=== PATIENT | female | born 1950 | race African-American/Black ===

== ENCOUNTER 2018-06-19 09:46 | Inpatient (IN) ==
[2018-06-19] MEDS ORDERED: DUONEB (A & A) ONE (09:47)
[2018-06-19] MEDS ORDERED: ASPIRIN PR ONE (09:50)
[2018-06-19] MEDS ORDERED: ASPIRIN PO ONE (09:50)
[2018-06-19] MEDS ORDERED: DUONEB (A & A) INH ONE ×2 (09:52→10:10)
[2018-06-19 10:22] LABS: BE 0.6 mmoll (-3.0-3.0); BLOOD TYPE ARTERIAL; METHB 1.2 % (0.0-1.5); O2(CT) 15.1 mL/dL (15.0-23.0); PCO2(98.6) 36 mmHg (35-45); PO2(98.6) 56 mmHg (60-100); SAMPLE BLOOD; SAO2 91.3 % (95.0-100.0); pH(98.6) 7.44 (7.35-7.45)
[2018-06-19 10:26] LABS: ALLEN TEST NO; MODALITY CANNULA; O2HB 82.5 % (95.0-99.0)
--- NOTE | 2018-06-19 10:46 | Diag Imaging Result Doc PS360 ---
EXAM: CHEST-2 VIEWS INDICATION: dyspnea TECHNIQUE: 2 views COMPARISON: 01/17/2018 FINDINGS: The left chest port is in stable position. Overall, the large mediastinal and left hilar airam mass seen on the previous study has improved substantially. There is now consolidation versus residual mass projecting of the left lower lung zone. There are COPD changes with a mass in the anterior segment of the right upper lobe exhibiting an air crescent sign. 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 It is essentially stable. However, there is surrounding infiltrate that appears more prominent than the previous study There is no discrete pleural fluid collection or pneumothorax. Cardiac silhouette is essentially stable. IMPRESSION: 1.Overall significant improvement in the severe mediastinal and hilar lymphadenopathy on the left seen previously. 2.Opacification at the left lower lung zone that is obscuring the left heart border that either represents pneumonia or residual mass. 3.Approximately stable right midlung zone aspergilloma but with worsening infiltrate surrounding it. Electronically signed by Saul Guillory 06/19/2018 10:44 AM
[2018-06-19 11:46] LABS: INR 1.11; PROTIME 14.9 Seconds (11.0-16.0)
[2018-06-19 11:47] LABS: PTT 40.6 Seconds (22.3-41.8)
[2018-06-19 12:20] LABS: BASO# 0.02 X1000 (0.0-0.2); BASO% 0.2 % (0.0-0.8); EOS# 0.03 X1000 (0.0-0.7); EOS% 0.2 % (0.0-10.0); HEMOGLOBIN 9.3 g/dL (12.0-16.0); IMM GRAN# 0.07 X1000 (0.0-0.04); IMM GRAN% 0.6 % (0.0-0.5); LYMPH# 0.45 X1000 (1.2-3.4); LYMPH% 3.6 % (20.5-51.1); MCH 34.1 PG (27-31); MCHC 33.2 g/dL (33-37); MCV 102.6 FL (81-99); MONO# 1.43 X1000 (0.11-0.59); MONO% 11.3 % (1.7-9.3); MPV 9.4 FL (7.4-10.4); NEUT# 10.67 X1000 (1.4-6.5); NEUT% 84.1 % (42.2-75.2); PLT 196 X1000 (130-400); RBC 2.73 XMIL (4.2-5.4); RDW 14.3 % (11.5-14.5); WBC 12.67 X1000 (4.8-10.8)
[2018-06-19 12:56] LABS: ESTIMATED GFR > 60
[2018-06-19 12:58] LABS: AGAP 15; ALBUMIN 2.9 g/dL (3.5-5.0); ALKALINE PHOSPHATASE 120 U/L (32-104); BUN 16 mg/dL (8-22); CALCIUM 9.5 mg/dL (8.8-10.2); CHLORIDE 98 mmol/L (98-107); CK PROFILE 57 U/L (24-173); COSMO 293; CREATININE 0.8 mg/dL (0.5-0.9); GOT 18 U/L (10-30); GPT 11 U/L (10-36); SODIUM 137 mmol/L (136-145); TCO2 24 mmol/L (25-35); TOTAL PROTEIN 6.4 g/dL (6.3-8.3)
[2018-06-19 12:59] LABS: GLUCOSE 415 mg/dL (70-104)
[2018-06-19] MEDS ORDERED: ZOFRAN IV PRN (14:44)
[2018-06-19] MEDS ORDERED: NS NEB INH SCH (14:45)
[2018-06-19] MEDS ORDERED: NS 1,000 ML IV SCH ×3 (14:45→18:00)
[2018-06-19] MEDS: XOPENEX NEB INH SCH ×3 (16:12→23:35)
[2018-06-19] MEDS: ATROVENT NEB INH SCH ×3 (16:13→23:35)
[2018-06-19] MEDS ORDERED: VANCOMYCIN IV PER PHARMACY MISC SCH (16:30)
[2018-06-19] MEDS ORDERED: ZOSYN 3.375 GM in NS 50 ML IV SCH (16:30)
[2018-06-19] MEDS: SOLU-MEDROL IV SCH (18:53)
[2018-06-19] MEDS: CLINDAMYCIN 600 MG/D5W 600 MG/50 ML IVPB IV SCH (18:53)
--- NOTE | 2018-06-19 19:23 | HISTORY AND PHYSICAL ---
ADDENDUM: Patient seen and examined by myself. Full note dictated and discussed with nurse practitioner. Patient presented to the ER stating that she has been sick for 3 weeks. She has been encouraged to come to the ER, but was not until today. Her symptoms have continued to worsen with cough, congestion, shortness of breath, dyspnea on exertion. Has a known history of lung cancer. It appears as though she has a pneumonia. We will admit her to the hospital, place her on antibiotics, and will follow. cc: Ankur Mahmood MD
--- NOTE | 2018-06-19 19:44 | HISTORY AND PHYSICAL ---
CHIEF COMPLAINT: Shortness of breath. HISTORY OF PRESENT ILLNESS: This is a 67-year-old female with a history of lung cancer, COPD with continued tobacco use. She presents to the emergency room complaining of increasing shortness of breath over the last 2 weeks despite her home medications. She states that during these 2 weeks she has not been able to eat, and she has lost a considerable amount of weight, although she is not sure how much. PAST MEDICAL HISTORY: 1. Colon cancer with bronchial obstruction. 2. Chronic obstructive pulmonary disease. 3. Hypothyroid. 4. Tobacco abuse. 5. Mild protein-calorie malnutrition. PAST SURGICAL HISTORY: Thyroidectomy, hysterectomy, mastectomy, needle biopsy, and left Port-A- Cath placement. FAMILY HISTORY: Family history is positive for breast cancer in her mother. SOCIAL HISTORY: She lives with family members. She smokes half a pack to a pack a day. She denies alcohol or illicit drug use. ALLERGIES: Codeine, fentanyl, morphine, penicillin, and tramadol that caused itching. HOME MEDICATIONS: A list will be obtained and once verified we will review and continue as appropriate. REVIEW OF SYSTEMS: Review of systems is discussed with patient with pertinent positives stated in the HPI. She denied any syncope or dizziness; any chest pain; any palpitations, a productive cough; any nausea, vomiting, diarrhea, constipation, black or bloody vomitus or stools; hematuria, dysuria, frequency, or urgency. PHYSICAL EXAMINATION: GENERAL: This is a 67-year-old female who is sitting on the side of the stretcher in ICU in mild respiratory distress. VITAL SIGNS: Blood pressure is 112/78 with a heart rate of 103, respirations are 20 to 22, temperature is 98.3 degrees with O2 saturation of 95% to 97% on 2 L nasal cannula. EYES: Pupils are equal, round, react to light. EOMs are intact. Sclerae are anicteric. HEENT: Head is normocephalic, atraumatic. Mucous membranes are moist. NECK: Supple with trachea midline. CARDIOVASCULAR: Regular rate and rhythm. S1, S2 appreciated. She has no lower extremity edema. Peripheral pulses palpable x4 extremities. PULMONARY: Breath sounds are diminished with left greater than right with wheezes scattered throughout. GASTROINTESTINAL: Abdomen is soft, nondistended, nontender with bowel sounds in all 4 quadrants. NEUROLOGIC: She is alert and oriented. SKIN: Warm and dry. LABORATORY DATA: WBC is 12.6 with a hemoglobin 9.3, hematocrit 28, platelets of 196,000. Sodium is 137, potassium 4, BUN 16, creatinine 0.8 with glucose 415. ABGs with pH of 7.4 with pCO2 of 36, PO2 of 56, and bicarb of 25. Chest x-ray reveals significant overall and severe mediastinal and hilar lymphadenopathy on the left compared to 01/17/2018. She has opacification at the left lower lung zone. There is obscuring the left heart border that either represents pneumonia or residual mass. Approximately stable right mid lung zone aspergilloma but with worsening infiltrate surrounding it. ASSESSMENT: 1. Acute hypoxic respiratory distress. 2. Chronic obstructive pulmonary disease with acute exacerbation. 3. Lung cancer with bronchial obstruction. She is followed by Dr. Warner. 4. Hypothyroid. 5. Leukocytosis. 6. Hyperglycemia. 7. Moderate protein-calorie malnutrition. PLAN: The patient will be transferred to medical floor at [facility]. We will consult Dr. Warner and Dr. Grimes who she has previously established with. Of note blood cultures were obtained in the emergency room. We will start antibiotic coverage of vancomycin and Zosyn, and then further antibiotic coverage will be culture driven. We will identify her medications and continue. She has had been tachycardic, so we will give Xopenex and Atrovent treatments every 4 hours with steroids to taper. We will consult dietary for help with nutrition. We will get a urine and urine culture. Further treatments pending hospital course. Dictated by JOSE Leslie for Ankur Mahmood MD This chart was documented by, JOSE Leslie and accurately reflects the services performed, treatment plan and medical decisions as attested by the providers signature Ankur Mahmood MD. cc: JOSE Leslie MD
[2018-06-19] MEDS: HUMULIN R SUBQ SCH ×2 (20:29→22:47)
[2018-06-19] MEDS: VANCOMYCIN 1 GM/NS 1 GM/250 ML IVPB IV SCH (20:29)
[2018-06-20] MEDS ORDERED: HUMALOG SUBQ ONE (00:43)
[2018-06-20] MEDS: SOLU-MEDROL IV SCH ×3 (01:08→23:19)
[2018-06-20] MEDS: CLINDAMYCIN 600 MG/D5W 600 MG/50 ML IVPB IV SCH ×3 (01:08→18:00)
[2018-06-20] MEDS: ATROVENT NEB INH SCH ×6 (02:50→22:59)
[2018-06-20] MEDS: XOPENEX NEB INH SCH ×6 (02:50→22:59)
[2018-06-20 04:51] LABS: URINE SOURCE VOIDED
[2018-06-20 04:53] LABS: BILIRUBIN URINE NEGATIVE (NEGATIVE); BLOOD URINE NEGATIVE (NEGATIVE); COLOR YELLOW; GLUCOSE URINE >1000 mg/dL (NEGATIVE); KETONE URINE NEGATIVE (NEGATIVE); LEUKOCYTES URINE NEGATIVE (NEGATIVE); NITRITE URINE NEGATIVE (NEGATIVE); PROTEIN URINE 50 mg/dL (NEGATIVE); TURBIDITY URINE HAZY (CLEAR); UROBILINOGEN URINE NORMAL (NORMAL)
[2018-06-20 05:08] LABS: UR EPITHELIAL CELLS <10 /HPF (<10); URINE BACTERIA NEGATIVE /HPF; URINE RBC <10 /HPF (<10); URINE WBC <10 /HPF (<10)
[2018-06-20 06:05] LABS: URINE CASTS NONE SEEN; URINE CRYSTALS NONE SEEN; URINE SMALL ROUND CELLS NONE SEEN; URINE YEAST PRESENT
[2018-06-20] MEDS: PRILOSEC PO SCH (06:35)
[2018-06-20] MEDS: HUMULIN R SUBQ SCH ×4 (06:36→16:12)
[2018-06-20] MEDS ORDERED: MIRALAX PO PRN (13:38)
[2018-06-20] MEDS ORDERED: MYCOSTATIN SUSP PO PRN (13:38)
[2018-06-20] MEDS ORDERED: SOLU-MEDROL IV SCH (14:00)
[2018-06-20] MEDS ORDERED: CORTEF PO SCH (14:00)
[2018-06-20 14:27] LABS: HEMATOCRIT 26.6 % (37.0-47.0); HEMOGLOBIN 8.8 g/dL (12.0-16.0); IMM GRAN# 0.04 X1000 (0.0-0.04); IMM GRAN% 0.3 % (0.0-0.5); LYMPH# 0.19 X1000 (1.2-3.4); LYMPH% 1.6 % (20.5-51.1); MCH 34.1 PG (27-31); MCHC 33.1 g/dL (33-37); MCV 103.1 FL (81-99); MONO% 5.1 % (1.7-9.3); MPV 9.4 FL (7.4-10.4); NEUT# 11.05 X1000 (1.4-6.5); PLT 167 X1000 (130-400); RBC 2.58 XMIL (4.2-5.4); WBC 11.88 X1000 (4.8-10.8)
[2018-06-20 14:49] LABS: BANDS 6 % (0-1); LYMPHS 4 % (21-51); MONO 3 % (1-9); SEGS 87 % (42-75)
[2018-06-20 15:26] LABS: AGAP 15; BUN 20 mg/dL (8-22); CALCIUM 9.3 mg/dL (8.8-10.2); CHLORIDE 102 mmol/L (98-107); COSMO 295; CREATININE 0.9 mg/dL (0.5-0.9); ESTIMATED GFR > 60; GLUCOSE 401 mg/dL (70-104); POTASSIUM 4.4 mmol/L (3.5-5.1); SODIUM 138 mmol/L (136-145); TCO2 21 mmol/L (25-35)
--- NOTE | 2018-06-20 15:30 | PROGRESS NOTE ---
DATE: 06/20/2018 SUBJECTIVE: This patient is still complaining of shortness of breath mostly with physical activity. He was admitted due to acute hypoxemic respiratory failure. She has a history of lung cancer. She has been placed on antibiotics due to possible pneumonia. Oncology Department and Pulmonary Department consulted. OBJECTIVE: Vital Signs: Temperature 97.7 degrees, pulse 93, respiratory rate 36, blood pressure 120/62, oxygen saturation 93 on 3 L of nasal cannula. HEENT: Head normocephalic. No trauma. PERRLA. Neck: Supple. No JVD. No masses. Central trachea. Chest: Coarse breath sounds bilaterally with rhonchi and crepitus, which are generalized. Abdomen: Soft, nontender, nondistended. No hepatosplenomegaly. Extremities: No edema. No clubbing. No cyanosis. Decreased muscle mass. Neurological: The patient is alert and oriented x3. No focal deficits. LABORATORY: WBC 11.8, hemoglobin 8.8, hematocrit 26.6, platelet 167,000. Glucose 389. ASSESSMENT AND PLAN: 1. Acute hypoxemic respiratory failure, continue with oxygen supplementation, antibiotics, pulmonary toilet, Pulmonary Department has been consulted. We will follow their recommendations. 2. Chronic obstructive pulmonary disease with acute exacerbation. This patient has been placed on steroids which I will continue, she is still having wheezing. 3. Lung cancer with bronchial obstruction, followed by Dr. Warner, pending recommendations. 4. Hypothyroidism. Continue with levothyroxine. 5. Leukocytosis. Decreased a little bit compared with yesterday, from 12 to 11. We will monitor. 6. Hyperglycemia. This patient has been getting high dose of steroids. I am not quite sure if this patient has a history of diabetes. I have placed this patient on sliding scale insulin and pattern of blood sugar. 7. Moderate protein calorie malnutrition, we will monitor. Continue with her diet. It looks like the patient is taking hydrocortisone twice a day. Apparently as per the patient, she is taking 20 mg in the morning and 10 at lunch. I am not going to put this patient back on hydrocortisone because he she is already receiving steroids. We will monitor for now, and I will follow the recommendations of Pulmonary Department and Oncology Department. cc: Augustin Rogers MD
[2018-06-20] MEDS: NS 1,000 ML IV SCH (16:13)
[2018-06-20] MEDS: ADVAIR 500/50 DISKUS INH SCH (19:20)
[2018-06-20] MEDS: BASAGLAR SUBQ SCH (22:51)
[2018-06-20] MEDS: VENTOLIN HFA INH SCH (22:59)
[2018-06-20] MEDS: NICODERM PATCH TD SCH (23:18)
[2018-06-20] MEDS: ALPHAGAN P 0.1% OPHTH SOLN BOTH EYES SCH (23:18)
[2018-06-20] MEDS: RITALIN PO SCH (23:19)
[2018-06-21] MEDS: CLINDAMYCIN 600 MG/D5W 600 MG/50 ML IVPB IV SCH ×2 (01:51→09:50)
[2018-06-21] MEDS: VANCOMYCIN 1 GM/NS 1 GM/250 ML IVPB IV SCH (02:58)
[2018-06-21] MEDS: ATROVENT NEB INH SCH ×6 (03:40→23:32)
[2018-06-21] MEDS: XOPENEX NEB INH SCH ×7 (03:40→23:32)
[2018-06-21 05:36] LABS: ALLEN TEST YES; BLOOD TYPE ARTERIAL; HCO3-(ACT) 24.1 mmoll (20.0-26.0); METHB 0.5 % (0.0-1.5); O2(CT) 7.3 mL/dL (15.0-23.0); PCO2(98.6) 35 mmHg (35-45); PO2(98.6) 62 mmHg (60-100); SAMPLE BLOOD; THB 5.5 g/dL (11.5-17.4); pH(98.6) 7.43 (7.35-7.45)
[2018-06-21 05:39] LABS: MODALITY CANNULA
[2018-06-21] MEDS: SOLU-MEDROL IV SCH ×4 (06:05→22:07)
[2018-06-21] MEDS: SYNTHROID PO SCH (06:05)
[2018-06-21] MEDS: PRILOSEC PO SCH (06:05)
[2018-06-21] MEDS: HUMULIN R SUBQ SCH ×5 (06:07→22:08)
[2018-06-21 06:30] LABS: BASO# 0.01 X1000 (0.0-0.2); BASO% 0.1 % (0.0-0.8); HEMATOCRIT 23.9 % (37.0-47.0); HEMOGLOBIN 7.9 g/dL (12.0-16.0); IMM GRAN# 0.02 X1000 (0.0-0.04); IMM GRAN% 0.2 % (0.0-0.5); LYMPH# 0.15 X1000 (1.2-3.4); LYMPH% 1.5 % (20.5-51.1); MCH 34.1 PG (27-31); MCHC 33.1 g/dL (33-37); MONO# 0.78 X1000 (0.11-0.59); MONO% 7.6 % (1.7-9.3); NEUT# 9.26 X1000 (1.4-6.5); NEUT% 90.6 % (42.2-75.2); PLT 147 X1000 (130-400); RBC 2.32 XMIL (4.2-5.4); RDW 14.3 % (11.5-14.5); WBC 10.22 X1000 (4.8-10.8)
[2018-06-21 06:50] LABS: LYMPHS 2 % (21-51); MONO 6 % (1-9); SEGS 92 % (42-75)
[2018-06-21 07:01] LABS: AGAP 12; ALB/GLOB RATIO 0.8; ALBUMIN 2.8 g/dL (3.5-5.0); ALKALINE PHOSPHATASE 102 U/L (32-104); BUN 19 mg/dL (8-22); CALCIUM 8.5 mg/dL (8.8-10.2); CHLORIDE 106 mmol/L (98-107); COSMO 290; CREATININE 0.7 mg/dL (0.5-0.9); ESTIMATED GFR > 60; GLUCOSE 214 mg/dL (70-104); GOT 21 U/L (10-30); GPT 17 U/L (10-36); POTASSIUM 4.5 mmol/L (3.5-5.1); SODIUM 141 mmol/L (136-145); TCO2 23 mmol/L (25-35); TOTAL BILIRUBIN 0.22 mg/dL (0.20-1.00); TOTAL PROTEIN 6.4 g/dL (6.3-8.3)
--- NOTE | 2018-06-21 08:02 | Diag Imaging Result Doc PS360 ---
EXAM: CHEST-PORTABLE INDICATION: dyspnea TECHNIQUE: One view COMPARISON: 06/19/2018 FINDINGS: The left chest port is in stable position. The dense consolidation projecting of the left heart border has improved. There is still significant consolidation in the perihilar region and lower lung zone on the left, however. The mass exhibiting an air crescent sign likely representing an aspergilloma is again identified. Infiltrate surrounding the lesion is probably stable given differences in exposure and technique. Cardiac silhouette is stable. IMPRESSION: Interval improvement on the left as described. Electronically signed by Saul Guillory 06/21/2018 8:00 AM
[2018-06-21] MEDS: ADVAIR 500/50 DISKUS INH SCH ×2 (08:10→19:22)
[2018-06-21] MEDS ORDERED: CORTEF PO SCH (09:00)
[2018-06-21] MEDS: THERA M PLUS PO SCH (09:49)
[2018-06-21] MEDS: CALTRATE 600 PO SCH (09:50)
[2018-06-21] MEDS: RITALIN PO SCH ×2 (09:50→20:16)
[2018-06-21] MEDS: NICODERM PATCH TD SCH (09:50)
[2018-06-21] MEDS: XALATAN 0.005% OPH SOLN BOTH EYES SCH (09:51)
[2018-06-21] MEDS: ALPHAGAN P 0.1% OPHTH SOLN BOTH EYES SCH ×2 (09:52→20:16)
[2018-06-21] MEDS: VENTOLIN HFA INH SCH ×2 (10:16→19:22)
--- NOTE | 2018-06-21 11:18 | PROGRESS NOTE ---
DATE: 06/21/2018 SUBJECTIVE: Ms. Ventura says she is feeling a little better. Breathing better. She is followed by Dr. Taya Warner. Was admitted on 06/19/2018. She is a 67 year old with history of lung cancer, COPD, continued tobacco use. She presented complaining of increased shortness of breath for least 2 weeks. Despite her home medications, states that during these 2 weeks she was not able to eat and lost a considerable amount of weight. PAST MEDICAL HISTORY: Review of past medical history: 1. Lung cancer with bronchial obstruction. 2. COPD. 3. Hypothyroidism. 4. Tobacco use. 5. Mild protein calorie malnutrition. 6. Poor appetite. So, admitted with acute hypoxemic respiratory distress and COPD exacerbation, underlying lung cancer with bronchial obstruction and bronchospasm in the face of a history of hypothyroidism. She did have leukocytosis, hyperglycemia and moderate protein calorie malnutrition. Today, she does report she feels better. OBJECTIVE: Vital Signs: Temperature is 97.8 degrees, pulse 80, respirations 20, blood pressure 126/71. Eyes: Pupils were equal. Neck: No distended neck veins. Lungs: Clear in all lung laughlin. Cardiovascular exam: Regular rhythm and rate without murmur or S3. Abdomen: Soft. Skin: Warm and dry. : Urine output 3700 mL. Blood sugar 401, 86, 249. X-RAYS: Chest x-ray: Interval improvement in the left. Dense consolidation projecting of the left heart border which is improved. Still significant consolidation in the perihilar region and lower lung zone on the left. The mass exhibiting and air crescent sign likely represents aspergilloma, which is again identified, infiltrating surrounding lesions and probably stable. ASSESSMENT AND PLAN: 1. Acute hypoxemic respiratory failure. Continue oxygen supplementation, antibiotics, pulmonary toilet. Pulmonary Department is consulted. 2. Chronic obstructive pulmonary disease exacerbation, aware. 3. Lung cancer with bronchial obstruction. Dr. Warner has been following. 4. Hypothyroidism. Continue levothyroxine. I think she appears euthyroid. 5. Leukocytosis, which is marginal. 6. Hyperglycemia. Probably main reason is her high-dose steroids. It looks like we can taper down the steroids a little bit. 7. Diabetes mellitus. Blood sugars appears controlled. Review of orders: Patient getting clindamycin 600 mg intravenous every 8 hours, on insulin glargine 20 units subcutaneous at bedtime, ipratropium bromide 0.5 mg inhalation q. 4 hours, Xopenex 0.63 q. 4 hours, Synthroid 75 mcg daily, Ritalin 5 mg p.o. b.i.d., methylprednisone 40 mg IV q. 8 hours, nicotine patch 14 mg daily, prednisone 40 mg a day, MiraLAX 17 g daily, vancomycin 1 g q. 30 hours. Note that micro grew gram-negative cristofer in the sputum culture; that was from the 06/19/2018. Blood cultures x2 from 06/19/2018 have no growth. Continue present orders and care. I think I will continue the Solu-Medrol at the same dose for now. cc: Nando Olivares MD
[2018-06-21] MEDS: NS 1,000 ML IV SCH (14:13)
[2018-06-21] MEDS: MAXIPIME 1 GM in NS 50 ML IV SCH (14:13)
--- NOTE | 2018-06-21 14:55 | INFECTIOUS DISEASE CONSULT REP ---
DATE: 06/21/2018 CONCLUSION: Patient has lung cancer with possible obstruction to a bronchus. She appears now to have developed a gram-negative cristofer pneumonia and also she appears to have an aspergilloma. The patient is allergic to penicillin manifested by itching, but she did not have hives or obstruction to breathing by swelling of the respiratory tract. RECOMMENDATIONS: I have discontinued vancomycin and clindamycin and put the patient on cefepime. I have ordered that the nurse observe the patient during the first dose of IV cefepime. Also, I have ordered a galactomannan antigen and I have ordered 2 sputums for fungal culture. DISCUSSION: The patient tells me that for the past 3 weeks she has had increasing shortness of breath. She also coughs and brings up a yellow sputum. She said that she is anorectic. She also tells me that she had what sounds like oral candidiasis. She believe she is losing weight, also. The current laboratory studies show a CBC with a white count of 10,220, hemoglobin 7.9 and platelet count 147,000. Blood gases show a pH of 7.43, a PO2 of 62 and a pCO2 of 35. Creatinine 0.7. GFR is greater than 60. Urinalysis showed no white cells or bacteria. Urine culture is negative. Sputum is growing gram-negative cristofer. Blood cultures are negative. Patient's chest x- ray shows the following: The patient has had improvement in severe mediastinal and hilar lymphadenopathy on the left side. Opacification of the left lower lung zone that is obscuring the left heart border that either represents pneumonia or a residual mass. A right mid lung zone aspergilloma, but with worsening infiltrate around it. FASHION STYLIST HISTORY: She is a 1, para 0, AB 1. PREVIOUS HOSPITALIZATIONS AND OPERATIONS: She has had a miscarriage. She has had placement of a left-sided Port-A-Cath. She has also had a thyroidectomy, hysterectomy, mastectomy, needle biopsy presumably of her lung mass. The patient has also been admitted because of her lung cancer. MEDICAL DISEASES: Positive for diabetes mellitus, lung cancer with bronchial obstruction. The patient is being treated with chemotherapy and radiation for that. The patient also has chronic obstructive pulmonary disease, hypothyroidism, malnutrition and continued cigarette smoking. INFECTIOUS DISEASE HISTORY: Positive for pneumonia and urinary tract infection. FAMILY HISTORY: Positive for diabetes mellitus, hypertension and cancer. SOCIAL HISTORY: [place] She smoke cigarettes. She does not drink alcoholic beverages or use illicit drugs. ALLERGIES: She is allergic to codeine, fentanyl, morphine, tramadol and hydrocodone. As mentioned earlier, the patient had an allergic reaction to penicillin manifested by itching. However, she does not have any obstruction to breathing and she does not have any hives from penicillin. HOME MEDICATIONS: Include the following: Albuterol inhaler, Advair Diskus, insulin, Atrovent, eyedrops including Latanoprost and Alphagan. The patient also is on Synthroid, Ritalin, Solu- Medrol multivitamins, nystatin, omeprazole, Zofran, MiraLAX. PHYSICAL EXAMINATION: Vital Signs: Temperature is 97.8, pulse 83, respirations 20, blood pressure 126/71. Patient weighs 107.8 pounds. General: This is a malnourished appearing, chronically ill elderly female. She does get short of breath when she lies down and she also coughs up sputum. Head, Eyes, Ears, Nose and Throat: She can hear my spoken words and see near objects. She does have white coating to her tongue. Neck: No meningismus. Lungs: There were bilateral rhonchi. Thorax: Patient has a Port-A-Cath in place on the left side. The Port-A-Cath site is not swollen or draining. Cardiovascular: Heart rate is regular. There appears to be a systolic murmur and a gallop. Abdomen: Soft and nontender. Bones, Joints, Muscles: The patient has lost a lot of muscle mass. There is no swollen joint. Neurologic: The patient is awake. She ambulates without difficulty, but she does have generalized weakness. There is no tremor. The patient's memory as regarding her medical history is slightly diminished. Thank you for the consult. cc: Power Hernandez MD [facility]
--- NOTE | 2018-06-21 17:07 | HISTORY AND PHYSICAL ---
PLEASE DELETE MTDD
[2018-06-21] MEDS: MYCOSTATIN SUSP PO SCH ×2 (17:15→20:16)
[2018-06-21] MEDS: BASAGLAR SUBQ SCH (20:15)
[2018-06-22] MEDS: MAXIPIME 1 GM in NS 50 ML IV SCH ×3 (01:45→22:03)
[2018-06-22] MEDS: XOPENEX NEB INH SCH ×6 (03:10→23:55)
[2018-06-22] MEDS: ATROVENT NEB INH SCH ×6 (03:10→23:55)
[2018-06-22] MEDS: SOLU-MEDROL IV SCH ×3 (06:00→21:55)
[2018-06-22] MEDS: PRILOSEC PO SCH (06:00)
[2018-06-22] MEDS: SYNTHROID PO SCH (06:00)
[2018-06-22] MEDS: HUMULIN R SUBQ SCH ×4 (06:01→21:53)
[2018-06-22] MEDS: ADVAIR 500/50 DISKUS INH SCH ×2 (08:29→20:20)
[2018-06-22] MEDS: NICODERM PATCH TD SCH (09:32)
[2018-06-22] MEDS: MYCOSTATIN SUSP PO SCH ×4 (09:32→21:53)
[2018-06-22] MEDS: CALTRATE 600 PO SCH (09:32)
[2018-06-22] MEDS: THERA M PLUS PO SCH (09:32)
[2018-06-22] MEDS: ALPHAGAN P 0.1% OPHTH SOLN BOTH EYES SCH ×2 (09:33→21:54)
[2018-06-22] MEDS: XALATAN 0.005% OPH SOLN BOTH EYES SCH (09:33)
[2018-06-22] MEDS: RITALIN PO SCH ×3 (09:34→21:54)
[2018-06-22] MEDS: NS 1,000 ML IV SCH ×2 (11:34)
[2018-06-22] MEDS: VENTOLIN HFA INH SCH ×2 (11:52→20:20)
--- NOTE | 2018-06-22 12:37 | PROGRESS NOTE ---
DATE: 06/22/2018 SUBJECTIVE: Ms. Ventura is feeling better. Her breathing is better. She is hungry. She would like a solid diet. OBJECTIVE: Vital Signs: Temperature 98.9 degrees, pulse 83, respirations 20, blood pressure 117/60. Lungs: Clear in all lung laughlin anterolateral and posterior. Cardiovascular: Regular rhythm and rate without murmur or S3. Abdomen: Soft. Skin: Warm and dry. Urine output is 1900 mL. Blood sugar 281,134-307. ASSESSMENT AND PLAN: 1. Lung cancer. Possible obstruction to bronchus. Appears to have developed a gram-negative cristofer pneumonia and appears to have aspergilloma. The patient is allergic to penicillin which manifested by itching and hives. So, Dr. Hernandez is helping. He has discontinue vancomycin and clindamycin. The patient is on cefepime and will check a galactomannan antigen and he has ordered two sputums for fungal culture. 2. Chronic obstructive pulmonary disease with exacerbation. 3. Lung cancer with bronchial obstruction followed by Dr. Warner and looks like has an aspergilloma. 4. Hypothyroidism on levothyroxine. Appears be euthyroid. 5. Leukocytosis, which is stable. 6. Hyperglycemia. Blood sugars still running a little bit high. We will put her on a diabetic diet and continue present course. cc: Nando Olivares MD
[2018-06-22] MEDS: BASAGLAR SUBQ SCH (21:54)
--- NOTE | 2018-06-23 03:28 | INFECTIOUS DISEASE PROGRESS NO ---
DATE: 06/22/2018 PRESENT ILLNESS: The patient has a Pseudomonas pneumonia, an aspergilloma, and oral candidiasis. MEDICATIONS: The patient is on cefepime and nystatin. This is day 1 of treatment with cefepime IV and nystatin swish and swallow. PHYSICAL EXAMINATION: Vital Signs: The temperature is 98.8 degrees, pulse 87, respirations 24, blood pressure 140/50. General: This is a chronically ill-appearing, elderly female. She is in no acute distress. She told me today she is coughing less and the sputum that she is coughing up has less color in it. Head, Eyes, Ears, Nose, and Throat: She can hear my spoken words and see near objects. She still has some white coating on her tongue. Neck: No meningismus. Thorax: No increased AP diameter of the chest. Lungs: There was bilateral rhonchi. Cardiovascular: Heart rate is regular. Abdomen: Soft and nontender. Neurologic: The patient is alert. She can move her extremities. There is no tremor. LAB AND X-RAY: There is no new radiographic study today. The patient's sputum grew Pseudomonas, susceptible to all antibiotics tested. The patient's blood and urine cultures are negative. ASSESSMENT AND PLAN: The patient has a Pseudomonas pneumonia. I have increased the patient's cefepime from 1 g intravenous every 12 hours to 1 g intravenous every 8 hours. As regarding the patient's oral candidiasis, she is on nystatin swish and swallow. Both the cefepime and nystatin are day 1 of treatment. As regarding the patient's aspergilloma, the aspergilloma usually does not respond to antifungal therapy. It is noted that the surrounding tissues of the aspergilloma are getting larger and thus, the patient may have developed an aspergillus pneumonia as well as the aspergilloma. I have ordered a galactomannan antigen and also a sputum for fungal culture. If these are positive, then I will put the patient on a combination of voriconazole and micafungin. COMORBIDITIES: Unfortunately, the patient has lung cancer with bronchial obstruction. She also is a diabetic and she has chronic obstructive pulmonary disease, malnutrition, and continued cigarette smoking. cc: Power Hernandez MD MTDGertrude
--- NOTE | 2018-06-23 03:49 | HEMO/ONC CONSULTATION ---
DATE: 06/20/2018 REQUESTING PHYSICIAN: Consultation requested by the hospitalist service. REASON FOR CONSULTATION: Consultation is for lung cancer, patient known. HISTORY OF PRESENT ILLNESS: Ms. Ventura is a 67-year-old, female who is known to us as we have treated her for small-cell lung cancer. She actually called our office several days ago, complaining of some increased shortness of breath. She was advised to follow up with her primary care physician as her most recent scans in our office have been stable. She is not currently on any active treatment. It appears that the patient's symptoms worsened. She actually presented to the emergency department at [facility] on 06/19/2018, complaining of increasing shortness of breath. She has now been admitted for a COPD exacerbation/pneumonia. The patient is status post chemoradiation, most recently with significant response and no active disease on her PET scan from 05/18/2018. She previously received carboplatin, Taxol. She is not on any active treatment currently. PAST MEDICAL HISTORY: 1. Right breast cancer, status post mastectomy and treatment previously. 2. Non-small cell lung carcinoma, status post chemotherapy and then chemoradiation with significant response to treatment. Not on any active treatment currently. 3. COPD. 4. Hypothyroidism. 5. Sleep apnea. PAST SURGICAL HISTORY: 1. Right mastectomy. 2. Hysterectomy. 3. Thyroidectomy. SOCIAL HISTORY: The patient does live with her family. She denies any alcohol or illicit drug use. She continues to smoke a half pack of cigarettes per day. FAMILY HISTORY: Positive for breast cancer. REVIEW OF SYSTEMS: Twelve point review of systems has been completed and is negative except as expressed in the HPI. PHYSICAL EXAMINATION: Vital Signs: Temperature 98.3 degrees, heart rate 89, respirations 18, blood pressure 136/66, O2 saturation 95% on 3 L nasal cannula. General: This is a thin, female sitting up in her hospital bed. She is in no acute distress at this time. HEENT: Head: Normocephalic, atraumatic. Eyes: Pupils equal, round, and reactive. Ears, Nose, Throat, Neck, and Mouth: Oral mucosa is normal. Trachea is midline. Cardiovascular: S1-S2 heard. No murmurs, gallops, or rubs appreciated. Respiratory: The patient has scattered rhonchi in all lung laughlin. She also has some wheezing. Normal respiratory effort currently. Gastrointestinal: Abdomen is soft, nontender, and nondistended with normoactive bowel sounds. Musculoskeletal: No bony abnormalities. Extremities: Some trace edema noted. Neurologic: The patient is alert and oriented with no focal motor deficits. LABS AND STUDIES: White blood cells 11.88, hemoglobin 8.8, hematocrit 26.6, platelet count 167,000. Sodium 138, potassium 4.4, chloride 102, CO2 21, BUN 20, creatinine 0.9, glucose 401. 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 ASSESSMENT AND PLAN: 1. Acute hypoxemic respiratory failure. This is likely secondary to chronic obstructive pulmonary disease exacerbation. She is currently receiving oxygen as well as intravenous antibiotics and pulmonary toilet. Continue per the primary team. 2. Chronic obstructive pulmonary disease exacerbation. Continue as per above. 3. Small-cell lung cancer, status post chemoradiation. Patient is not currently on active treatment. Most recent chest x-ray actually shows improvement. We will just have the patient continue to follow with us as scheduled once she is released from the hospital. It looks like she is due for repeat scans and a visit in July of 2018. 4. Hypothyroidism. Patient will continue levothyroxine. 5. Leukocytosis, could be related to her underlying illness. We will continue to monitor. We want to thank you for consulting us on Ms. Ventura. We will continue to follow along and adjust her treatment plan per her hospital course. Dictated by ISAK Montoya for Taya Warner MD cc: Taya Warner MD I have seen and examined the patient and the above note reflects my history, physical , and assessment and plan. Taya Warner MD [facility]ENTERGertrude
[2018-06-23] MEDS: SOLU-MEDROL IV SCH (05:27)
[2018-06-23] MEDS: MAXIPIME 1 GM in NS 50 ML IV SCH (05:28)
[2018-06-23] MEDS: NS 1,000 ML IV SCH (05:28)
--- NOTE | 2018-06-23 05:47 | CONSULTATION ---
DATE OF CONSULTATION: 06/19/2018 REQUESTING PROVIDER: JOSE Harper. REASON FOR CONSULTATION: Lung cancer. HISTORY OF PRESENT ILLNESS: This is a 67-year-old female with a medical history of lung cancer with bronchial obstruction, chronic obstructive pulmonary disease , hypothyroidism, obstructive sleep apnea, tobacco abuse, and protein-caloric malnutrition. She is well known to our office for her lung cancer. She presented to the ER on 06/19/2018 with worsening shortness of breath for more than 2 weeks. In the ER, chest x-ray revealed overall significant improvement in the severe mediastinal and hilar lymphadenopathy on the left seen previously , opacification at the left lower lung zone that is obscuring the left heart border that either presents pneumonia or residual metastases, and approximately stable right mid lung zone aspergilloma, but with worsening infiltrate surrounding it. Lab revealed white blood cell of 12.67, hemoglobin 9.3, hematocrit 28.0, glucose 415, and PO2 of 56. She has been admitted to the medical floor with acute hypoxic respiratory distress, COPD exacerbation, lung cancer, leukocytosis, and hyperglycemia. At the time of my exam, she still reports SOB with any activities. She also reports productive cough with yellow thick sputum, poor appetite, unintentional weight loss, and general weakness. She denies headache, fever, chills, hemoptysis, nausea, vomiting, bowel habit change, chest pain, pleurisy, or palpitations. PAST MEDICAL HISTORY: 1. Lung cancer with bronchial obstruction status post chemotherapy and radiation , followed by Dr. Warner with Hematology/Oncology and with Pulmonology. Last bronchoscopy on 01/17/2018 showed a complete obliteration of the left upper lobe with fusion of the tumor with the wall; there is no opening at all for left upper lobe and lingula. 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 2. Acute chronic obstructive pulmonary disease. Last PFT on 03/07/2018 revealed severe obstruction and moderate restriction 3. Hypothyroidism. 4. Obstructive sleep apnea on home CPAP therapy. 5. Tobacco abuse. 6. protein caloric malnutrition. PAST SURGICAL HISTORY: 1. Thyroidectomy. 2. Hysterectomy. 3. Mastectomy. 4. Lung left upper lobe endobronchial biopsy on 05/05/2017 and 01/17/2018. 5. Left-sided Port-A-Cath placement. SOCIAL HISTORY: The patient lives at home with family. She smokes 1/2 a pack to 1 pack per day. She tried smoking cessation with Chantix in 2016, but failed. She denies history of alcohol or illicit drug use. FAMILY HISTORY: Positive for diabetes, hypertension, and cancer. ALLERGIES: Codeine, Fentanyl, morphine, penicillin, and tramadol. REVIEW OF SYSTEMS: A 10-point review of systems was conducted and the pertinent is listed within the HPI, otherwise noncontributory. PHYSICAL EXAMINATION: Vital Signs: Temperature 98.9, pulse 79, blood pressure 117/60, respiratory rate 24, and oxygen saturation 100% on nasal cannula at 2 L. General: Chronically- ill, malnourished, in moderate respiratory distress. She easily gets shortness of breath as talking when lying down although the head of the bed has already been elevated maximally close to 90 degrees. HEENT: Atraumatic. Neck: Trachea is midline. Respiratory: Tachypnea; shallow and rapid; Diminished bilaterally with coarse breathing sounds throughout the lung laughlin to auscultation. Cardiovascular: Regular rate and rhythm. Gastrointestinal: Soft, nontender, and nondistended. Normoactive bowel sounds in all 4 quadrants. Extremities: No pedal edema, cyanosis, or clubbing. Neurologic: Alert and oriented x3. General weakness. ASSESSMENT: This is a 67-year-old female with a medical history of lung cancer with bronchial obstruction, chronic obstructive pulmonary disease, hypothyroidism, obstructive sleep apnea, tobacco abuse, and mild protein calorie malnutrition. She has been admitted to the medical floor with acute hypoxic respiratory distress, chronic obstructive pulmonary disease exacerbation, lung cancer, leukocytosis and hyperglycemia since 06/19/2018. 1. Acute hypoxic respiratory distress. 2. Chronic obstructive pulmonary disease exacerbation 3. Lung cancer. PLAN: 1. Continue antibiotics, steroids and bronchodilators as prescribed. 2. Continue supplemental oxygen. 3. Consider BiPAP at bedtime and as needed. 4. Routine ABG and chest x-ray if indicated. 5. Dr. Hernandez, the Infectious Disease specialist and Dr. Warner consulted. 6. Continue GI and DVT prophylaxis. Thank you for the courtesy of this consult. Dictated by JOSE Hall for Toney Grimes MD cc: JOSE Hall MD [facility]
[2018-06-23] MEDS: PRILOSEC PO SCH (06:12)
[2018-06-23] MEDS: SYNTHROID PO SCH (06:12)
[2018-06-23] MEDS: HUMULIN R SUBQ SCH ×2 (06:13→11:46)
[2018-06-23] MEDS: XOPENEX NEB INH SCH ×2 (06:28→08:29)
[2018-06-23] MEDS: ATROVENT NEB INH SCH ×2 (06:28→08:29)
[2018-06-23 07:42] VITALS: BP 144/66
[2018-06-23] MEDS: RITALIN PO SCH (09:23)
[2018-06-23] MEDS: MYCOSTATIN SUSP PO SCH (09:24)
[2018-06-23] MEDS: THERA M PLUS PO SCH (09:24)
[2018-06-23] MEDS: CALTRATE 600 PO SCH (09:24)
[2018-06-23] MEDS: NICODERM PATCH TD SCH (09:24)
[2018-06-23] MEDS: XALATAN 0.005% OPH SOLN BOTH EYES SCH (09:24)
[2018-06-23] MEDS: ALPHAGAN P 0.1% OPHTH SOLN BOTH EYES SCH (09:24)
--- NOTE | 2018-06-23 11:18 | INFECTIOUS DISEASE PROGRESS NO ---
DATE: 06/23/2018 SUBJECTIVE: The patient has a Pseudomonas pneumonia, an aspergilloma, and a possible increasing Aspergillus pneumonia surrounding the aspergilloma, and oral candidiasis. MEDICATIONS: The patient is on cefepime and nystatin. This is day 2 of treatment with both agents. The nystatin is 5 mL swish and swallow 4 times a day. OBJECTIVE: Vital Signs: Temperature is 98.5 degrees, pulse 71, respirations 18, blood pressure 144/66. General: This is a chronically ill-appearing elderly female. She is in no acute distress. She told me she is feeling better. She is less dyspneic. Head/eyes/ears/nose/throat: She can hear my spoken words and see near objects. She still has some white coating on her tongue, but it is getting less. Neck: No stiffness. Thorax: The patient has a Port-A-Cath present on the left side. The site is not swollen or draining. Lungs: Patient has bilateral rhonchi. Cardiovascular: Heart rate is regular. Abdomen: Soft and nontender. Neurologic: The patient is alert. She ambulates without difficulty. She does not have a tremor. LAB AND X-RAY: CBC shows a white count of 10,220, hemoglobin 7.9, platelet count is 147,000. She does not have a new radiographic study today. ASSESSMENT AND PLAN: 1. As regarding the patient's Pseudomonas pneumonia, I am going to be treating her with Levaquin 500 mg p.o. daily anywhere from 2 to 4 weeks. As regarding her oral candidiasis, I will be treating her with nystatin 5 mL swish and swallow 4 times a day for as long as the patient is on antibiotics and then possibly sometime after that. 2. As regarding the patient's aspergilloma, antifungal therapy rarely helps the infection. If it appears that the patient is having increasing Aspergillus invading the surrounding lung, then I will start the patient on a combination of micafungin and voriconazole. I am waiting for the results of the galactomannan antigen and the sputum for fungal culture. I plan to have the patient come back to my office in 2 weeks. COMORBIDITIES: The patient has lung cancer with bronchial obstruction. She also is a diabetic, and she has chronic obstructive pulmonary disease, malnutrition, and continued cigarette smoking. cc: Power Hernandez MD
--- NOTE | 2018-06-23 13:10 | PROGRESS NOTE ---
DATE: 06/23/2018 HISTORY OF PRESENT ILLNESS: Ms. Ventura is anxious to go home. She was admitted on 06/19/2018 and discharged her on 06/23/2018. She presented on 06/19/2018 with shortness of breath. She has been followed by Dr. Taya Warner. She has a history of lung cancer, COPD with continued tobacco use. She presented to the emergency room complaining of increasing shortness of breath over the last 2 weeks despite her home medications. States that during these 2 weeks she was unable to eat and lost considerable amount of weight. PAST MEDICAL HISTORY: 1. Colon cancer with bronchial obstruction. 2. Chronic obstructive pulmonary disease. 3. Hypothyroidism. 4. Tobacco use. 5. Mild protein calorie malnutrition. ADMISSION DIAGNOSES: 1. Acute hypoxemic respiratory distress. 2. Chronic obstructive pulmonary disease exacerbation underlying lung cancer and bronchial obstruction suspected. 3. She does have a history of hypothyroidism. 4. She had leukocytosis and hyperglycemia on admission. HOSPITAL COURSE: Her chest x-ray on 06/19 on admission overall significant improvement in her severe mediastinal and hilar lymphadenopathy on the left. Seen previously. Opacification of the left lower lung zone that was obscuring left heart border and either represents pneumonia or residual mass. Approximately stable right mid lung zone appeared to be an aspergilloma. She seemed to improve clinically. Dr. Hernandez of Infectious Disease was consulted and initiated treatment of IV cefepime. Discussed vancomycin and clindamycin and put the patient on cefepime. Ordered galactomannan antigen. Clinically, she improved. Advanced her diet. She wanted to try and go home and so we will plan on discharging her home. She will continue her nasal cannula. Follow up with Dr. Warner. She is takes Alphagan eyedrops 0.1% both eyes b.i.d., Caltrate 1200 mg daily. Fluticasone/salmeterol which is Advair 1 puff b.i.d. Basaglar 20 units at bedtime. Xalatan eyedrops 0.005% both eyes daily. Synthroid 75 mcg a day. Ritalin 5 mg b.i.d. She is on Solu- Medrol 40 mg IV q.8 which we can stop. Multivitamin daily, NicoDerm patch. I will give her Prilosec 40 mg daily, MiraLAX 17 g daily. She is presently on cefepime and nystatin. This is day 2 treatment of both. I think the plan is to change to Levaquin 500 mg a day anywhere from 2 to 4 weeks regarding the Pseudomonas pneumonia and continue her treatment for oral candidiasis with nystatin swish and swallow. In regards to aspergilloma she is having increased aspergillosis invading the surrounding lung and we will plan to start a combination treatment of micafungin and voriconazole under Dr. Hernandez's direction. Plan to discharge. cc: Nando Olivares MD
--- NOTE | 2018-07-01 09:04 | DISCHARGE SUMMARY ---
ADMISSION DATE: 06/19/2018 DISCHARGE DATE: 06/23/2018 Ms. Ventura is a 67-year-old. She is followed by Dr. Taya Warner. She presented with shortness of breath, history of lung cancer, COPD, continued tobacco use. She presented to the emergency room complaining of increasing shortness of breath over 2 weeks despite her home medication. During these 2 weeks she had not been able to eat, lost a considerable amount of weight although she is not sure how much. PAST MEDICAL HISTORY: 1. Colon cancer with bronchial obstruction. 2. Chronic obstructive pulmonary disease. 3. Hypothyroidism. 4. Tobacco use. 5. Mild protein calorie malnutrition. PAST SURGICAL HISTORY: 1. Status post thyroidectomy. 2. Status post hysterectomy. 3. Status post mastectomy. 4. She has had a needle biopsy done. I believe that is a breast biopsy. 5. Left Port-A-Cath placement. HOSPITAL COURSE: So was admitted with acute hypoxemic respiratory distress and exacerbation of COPD. She has underlying lung cancer with bronchial obstruction. She has been followed by Dr. Warner. History of hypothyroidism, leukocytosis, hyperglycemia, and moderate protein calorie malnutrition. Chest x-ray on 06/21/2018 interval improvement on the left. She was started on antibiotics and bronchodilators. Infectious Disease followed. [place] she might have postobstructive or possible obstruction of bronchus. Developed a gram negative cristofer pneumonia and appears to have aspergilloma radiographically. In talking to Dr. Warner this is old and probably not active aspergilloma. The plan was to be treated with IV cefepime, ordered a galactomannan antigen and 2 sputums for fungal culture. Clinically, she improved and she was able to get some food down. Dr. Warner was following along as was pulmonary. Initially she required some BiPAP but gas exchange improved and is able to go to a nasal cannula and so felt she could be discharged home on 06/23/2018. DISCHARGE MEDICATIONS: She was discharged home on her ambulatory medications: Albuterol, Ventolin treatment given, her eye drops, brimonidine 0.1%, calcium carbonate she took 1200 mg p.o. daily, Advair 500/50, 1 puff b.i.d., Xalatan eyedrops 0.005% 1 drop each eye daily, Levaquin 500 mg p.o. daily. We were going to give her another 15 days of that, Synthroid 75 mcg p.o. daily, Glucophage 500 mg b.i.d., Ritalin 5 mg b.i.d. multivitamin 1 a day. Nicotine patch and omeprazole 40 mg daily with MiraLAX 17 g as needed. She will follow up in Dr. Hernandez's office in a couple weeks. cc: Nando Olivares MD
--- NOTE | 2018-07-01 11:29 | PROVIDER DOCUMENTATION ---
This chart was entered by Chrissie Solorzano Scribe, acting as scribe for Jerome Sanchez MD. HPI-Respiratory General - General Chief Complaint: Shortness of Breath Stated Complaint: SOB Time Seen by Provider: 06/19/18 09:54 Source: patient, EMS Allergies/Adverse Reactions: Patient Allergies Allergy/AdvReac Type Severity Reaction Status Date / Time codeine Allergy ITCHING Verified 01/11/18 16:17 fentanyl Allergy ITCHING Verified 01/11/18 16:17 morphine Allergy ITCHING Verified 01/11/18 16:17 Penicillins Allergy ITCHING Verified 01/11/18 16:17 tramadol [From Ultram] Allergy ITCHING Verified 01/11/18 16:17 hydrocodone AdvReac ITCHING Verified 01/11/18 16:17 Home Medications: Home Medication List Medication Instructions Recorded Confirmed Last Taken Type Brimonidine 0.1% Ophth Soln 1 drop BOTH EYES BID 04/06/17 06/19/18 03/30/18 History [Alphagan P 0.1% Ophth Soln] Calcium Carbonate [Calcium] 1,200 mg PO DAILY 04/06/17 06/19/18 03/31/18 History Fluticasone/Salmeterol [Advair 1 each IH BID 04/06/17 06/19/18 03/30/18 History 500-50 Diskus] Latanoprost 0.005% Oph Soln 1 drop BOTH EYES DAILY 04/06/17 06/19/18 03/30/18 History [Xalatan 0.005% Oph Soln] Metformin [Glucophage] 500 mg PO BID CC 04/06/17 06/19/18 03/31/18 History Multivitamin with Minerals 1 each PO DAILY 04/06/17 06/19/18 03/31/18 History [Multiple Vitamin] Omeprazole 40 mg PO DAILY 04/06/17 06/19/18 03/31/18 History Levothyroxine [Synthroid] 75 microgm PO DAILY@0600 04/29/17 06/19/18 03/31/18 History Albuterol Sulfate [Ventolin Hfa] 2 puff IH BID 02/23/18 06/19/18 03/31/18 History Methylphenidate HCl [Ritalin] 5 mg PO BID 02/23/18 06/19/18 03/30/18 History Polyethylene Glycol 3350 [Miralax] 17 gm PO DAILY PRN 02/23/18 06/19/18 History Nystatin 500,000 unit PO 3-4XDAY PRN PRN 03/31/18 06/19/18 Unknown History Levofloxacin [Levaquin] 500 mg PO DAILY #15 tab 06/23/18 Unknown Rx Nicotine Patch [Nicoderm Patch] 14 mg TD DAILY 14 Days #14 06/23/18 Unknown Rx patch.td24 Nystatin 5 ml PO 4XDAY #120 ml 06/23/18 Unknown Rx - History of Present Illness-Resp Nature of Presenting Problem: 67 year old female presents to the ER via EMS with complaint of SOB. Pt has COPD and states she is always SOB but in the last two weeks it has become worse and this morning she states she felt like she could not catch her breath. Pt also has elevated heart rate. Pt has had breast cancer and lung cancer and states the doctors told her the bottom part of lung with cancer present does not work well. Pt is on home oxygen. Pt has not been able to eat due to SOB and has lost a considerable amount of weight. Pt still smokes. Quality of Pain: reports: pressure Onset/Duration: reports: this morning Timing: reports: still present Cough Quality/Degree: reports: moderate Episode Frequency: chronic episodes Current Respiratory Medication Therapy: Initiated steroid inhaler Modifying Factors: improves with: oxygen Associated Symptoms: reports: cough, heart racing, shortness of breath Similar Symptoms Previously?: Yes Recently seen or treated by another doctor?: Yes Review of Systems - Adult - REVIEW OF SYSTEMS - ADULT Constitutional: denies: chills, fever Eyes: reports: no symptoms reported Ears, Nose, Mouth & Throat: reports: no symptoms reported Cardiovascular: reports: no symptoms reported Respiratory: reports: cough, shortness of breath Gastrointestinal: reports: poor appetite. denies: abdominal pain, nausea, vomiting Genitourinary: reports: no symptoms reported Musculoskeletal: reports: no symptoms reported Integumentary: reports: no symptoms reported Neurological: reports: no symptoms reported Psychiatric: reports: no symptoms reported Endocrine: reports: no symptoms reported Hematologic/Lymphatic: reports: no symptoms reported Allergic/Immunologic: reports: no symptoms reported All Other Systems: Reviewed and Negative Past History - Adult - PAST MEDICAL HISTORY-ADULT Review of Records: reports: Nursing Assessment Review, Medications Reviewed Major Childhood Illnesses: reports: denies history Cardiovascular: reports: denies history Respiratory: reports: COPD, cancer, sleep apnea Gastrointestinal: reports: GERD Obstetrical/Gynecological: reports: other (Breast CA) Genitourinary: reports: denies history Musculoskeletal: reports: denies history Neurological: reports: denies history Endocrine/Immune: reports: Diabetes, thyroid disorder Other Conditions: reports: denies history - PRIOR SURGERIES/PROCEDURES Surgical/Procedure History: reports: hysterectomy, breast (R masetectomy) - IMMUNIZATION STATUS Childhood Immunizations: See Nurse Assessment Flu Vaccine: See Nurse Assessment - FAMILY HISTORY Family History: reviewed, not pertinent - SOCIAL HISTORY Smoking: cigarettes Provider spent 3-5 mins advising pt. on dangers of tobacco.: Discussed manners to quit use, and f/u contacts for add'l counseling. Physical Exam-General - PHYSICAL EXAM-ADULT Initial Vital Signs Reviewed: Yes - CONSTITUTIONAL General Appearance: alert, mild distress - EYES Eyes: PERRL/EOMI, pink conjunctivae - HEAD, EARS, NOSE, MOUTH & THROAT HENMT: normocephalic/atraumatic, normal ENT inspection - NECK Neck: supple, normal inspection - RESPIRATORY Respiratory: rhonchi, increased rate - CARDIOVASCULAR Cardiovascular: normal peripheral pulses, regular rate, rhythm - MUSCULOSKELETAL Back Exam: no CVA tenderness, no vertebral tenderness Extremity: non-tender, normal inspection - SKIN Integumentary: normal color, warm/dry - NEUROLOGIC Neurologic: grossly normal, no motor/sensory deficits - PSYCHIATRIC Psych/Mental Status: normal mood/affect, normal thought content, normal thought process, oriented x 3 Progress - PLAN OF CARE/RESULTS Progress/Plan/Lab Results: Orders Category Date Time Status Admit [facility] Routine AdmDCTranf 06/19/18 15:49 Active Activity - Up with Assistance ORDERED Care 06/19/18 15:49 Active Cardiac Monitoring DIRECTED Care 06/19/18 09:51 Completed FSBS/Accucheck Result AC + HS Care 06/19/18 14:31 Active Intake and Output-Strict ORDERED Care 06/19/18 15:49 Active Oxygen Therapy- ED Nursing DIRECTED Care 06/19/18 09:51 Completed Saline Loc NOW Care 06/19/18 09:51 Completed Update & Confirm Home Medicati ROUTINE Care 06/19/18 14:31 Completed Vital Signs Order Q 8-HR ASSESS Care 06/19/18 15:49 Active Z-Document. for Tele Applied ORDERED Care 06/19/18 15:49 Completed CHEST-2 VIEWS [RAD] Stat Exams 06/19/18 09:51 Completed ABG [RESP] Routine Lab 06/19/18 10:00 Completed BLOOD CULTURE [BLDCUL] Stat Lab 06/19/18 09:58 Completed CBC WITH ELECTRONIC DIFF [HEME] Stat Lab 06/19/18 09:58 Completed CK PROFILE [SP CHEM] Stat Lab 06/19/18 09:58 Completed COMPREHENSIVE METABOLIC PANEL [CHEM] Stat Lab 06/19/18 09:58 Completed LACTATE, PLASMA [CHEM] Stat Lab 06/19/18 09:58 Completed PRO B-NATRIURETIC PEPTIDE Stat Lab 06/19/18 09:58 Completed PROTIME WITH INR [COAG] Stat Lab 06/19/18 09:58 Completed PTT [COAG] Stat Lab 06/19/18 09:58 Completed TROPONIN T Stat Lab 06/19/18 09:58 Completed Albuterol 2.5MG/Ipratrop 0.5MG [Duoneb (A & A)] Med 06/19/18 09:47 Discontinued 3 ml .ROUTE .STK-MED ONE Albuterol 2.5MG/Ipratrop 0.5MG [Duoneb (A & A)] Med 06/19/18 09:52 Discontinued 3 ml INH NOW ONE Albuterol 2.5MG/Ipratrop 0.5MG [Duoneb (A & A)] Med 06/19/18 10:10 Discontinued 6 ml INH NOW ONE Aspirin Med 06/19/18 09:50 Discontinued 300 mg MD NOW ONE Aspirin Med 06/19/18 09:50 Discontinued 325 mg PO NOW ONE Aerosol Treatments Stat Oth 06/19/18 09:52 Completed Aerosol Treatments Stat Oth 06/19/18 10:10 Completed CP/SOB/Palp >45 yrs of Age Stat Oth 06/19/18 09:50 Ordered Oxygen Device Routine Oth 06/19/18 15:49 Completed Telemetry [OM.EQ] Routine Oth 06/19/18 15:49 Active EKG [EKG] Stat Ther 06/19/18 09:51 Ordered Transfer/Admit Order [TRANSFER] Routine Transfer 06/19/18 14:26 Completed Result Diagrams: 06/21/18 06:13 06/21/18 06:13 - XRAY 1 XRAY Study: Chest Impression: Abnormal (1.Overall significant improvement in the severe mediastinal and hilar lymphadenopathy on the left seen previously. 2.Opacification at the left lower lung zone that is obscuring the left heart border that either represents pneumonia or residual mass. 3.Approximately stable right midlung zone aspergilloma but with worsening infiltrate surrounding it.) XRAY Interpretation: per radiologist Departure - Departure Date of Disposition Decision: 06/19/19 Time of Disposition Decision: 09:50 DIAGNOSIS: COPD exacerbation Disposition: ADMITTED INPATIENT 09 Certified Medical Emergency: Emergent Condition: Stable - Critical Care Note This patient required my direct & personal management of CC.: Yes Total Time (mins): 35 Critical Care Statement: This patient required my direct personal management to treat or rule out processes, the absence of which, could potentiallly result in sudden, clinically significant life or limb threatening deterioration. Attestation - Physician/ LUIS Attestation The physician spent face to face time with patient:: Yes Advanced Practice Provider documentation review:: Supervising physician onsite and consulted in the evaluation and care of this patient. The physician did have a face to face encounter with the patient. This chart was documented by the indicated scribe, (Chrissie Solorzano, Jeremy) and accurately reflects the services I performed and decisions made by me, Jerome Sanchez MD, as attested by the provider's signature.
== END 2018-06-23 14:00 | disposition home or self-care (01) | DRG 177 ==
LOC: 4N 09:46 → P.ED 09:46 → OBSVTOIN 14:35 → SUATTDRO 14:35 → 4N 15:05
PROVIDERS: ATTEND Emergency Medicine
CPT/HCPCS: 71010; 71020; 71045; 71046; 80048; 80053; 81001; 82550; 82805; 82948; 83605; 83880; 84484; 85025; 85610; 85730; 86606; 87040; 87070; 87077; 87088; 87102; 87186; 87205; 89220; 93005; 94640; 94761; 99285; 99999; A9270; J0692; J1815; J2920; J2930; J3370; J7030; XXXXX

== ENCOUNTER 2018-07-23 07:01 | Inpatient (IN) ==
[2018-07-23] MEDS ORDERED: TYLENOL PR PRN (21:23)
[2018-07-23] MEDS ORDERED: ATROPINE 1 % OPHTH SOLN SL PRN (21:24)
[2018-07-23] MEDS: DILAUDID IV PRN (22:21)
[2018-07-23] MEDS: LORAZEPAM ORAL CONCENTRATE PO PRN (22:22)
[2018-07-24] MEDS: DILAUDID IV PRN ×5 (04:22→17:14)
[2018-07-24] MEDS: LORAZEPAM ORAL CONCENTRATE PO PRN ×2 (07:47→11:54)
--- NOTE | 2018-07-24 13:16 | PROGRESS NOTE ---
DATE: 07/24/2018 SUBJECTIVE: Ms. Ventura is pretty restless and she has her BiPAP on. Family at the bedside. OBJECTIVE: Vital signs: Temperature 97.8 degrees, pulse 88, respirations blood pressure 105/81. HEENT: Pupils are equal and round. Neck: She does have distended neck veins. Lungs: The right lung is clear. Left with scattered rhonchi and diminished breath sounds in the lower 2/3 of the lung. Abdomen: Soft. Skin: Warm and dry. ASSESSMENT AND PLAN: 1. Note, she with hospice at this time so we will continue comfort care. 2. Her lung cancer is advanced. 3. She did get a pericardial window for her pericardial effusion, but continue comfort measures under hospice direction. 4. Review of her orders: She is getting Dilaudid 0.5 mg q.3 h. p.r.n., and she gets lorazepam 0.5 mg q.3 h. p.r.n. cc: Nando Olivares MD MTDD
[2018-07-25] MEDS: DILAUDID IV PRN ×3 (05:31→11:29)
[2018-07-25 08:30] VITALS: BP 90/53
[2018-07-25] MEDS ORDERED: ATIVAN IV PRN (12:37)
--- NOTE | 2018-07-25 13:52 | PROGRESS NOTE ---
DATE: 07/25/2018 SUBJECTIVE: She is under the care of hospice. She has not been responsive and has BiPAP on. She appears comfortable. We have increased her Ativan and her Dilaudid sedation. Family still wants to pursue just comfort measures. OBJECTIVE: Afebrile. Temperature 97.8 degrees, pulse 31, respirations 20, blood pressure 90/53. Pupils are equal. She has some distended neck veins.Lungs: Clear but shallow, and at times scattered rhonchi. Cardiovascular: Regular rhythm and rate. Abdomen: Soft. Skin: Warm and dry. ASSESSMENT AND PLAN: Note that her pulse rate is is getting slower. Continue comfort measures. cc: Nando Olivares MD
--- NOTE | 2018-07-25 15:14 | DISCHARGE SUMMARY ---
ADMISSION DATE: 07/23/2018 DISCHARGE DATE: 07/23/2018 SUMMARY: The patient was admitted to the hospital on 07/18/2018 with prolonged hospital course. Treated for pneumonia with lung cancer. She had a pericardial effusion drained. Respiratory status continued to deteriorate, and was transferred to inpatient hospice service. She was given comfort measures. She on 07/25/2018 at 01:42 in the afternoon. cc: Nando Olivares MD
== END 2018-07-25 13:30 | disposition expired | DRG 189 ==
LOC: SUPCPDRO 07:01 → 3N 07:01
PROVIDERS: ATTEND Emergency Medicine
CPT/HCPCS: 94660; 94762; J1170; J2060